=== PATIENT | male | born 1985 | race Two or more races ===

== ENCOUNTER 2017-09-20 09:11 | Emergency (ER) | payer MEDICAID ==
[~2017-09-20] VITALS: Ht 167.6 cm; Wt 74.4 kg
[2017-09-20 09:25] VITALS: BP 134/90
[2017-09-20] MEDS ORDERED: DIPHENHYDRAMINE25 M1 ORAL (09:42)
[2017-09-20] MEDS ORDERED: LORAZEPAM1 MG ORAL (09:43)
[2017-09-20] MEDS ORDERED: SERTRALINE HCL25 MG ORAL (09:43)
--- NOTE | 2017-09-20 09:52 | Emergency Room Report ---
History of Present Illness General Chief Complaint: General Complaint Source: Patient Present Illness HPI Patient reports that he was started on sertraline several months ago he reports that this was started by a psychiatrist in long term Since then he has felt that he has been having shaking and tremor feeling Patient still is taking the medication Denies any chest pain denies any abdominal pain denies any homicidal or suicidal thoughts Patient reports that this was a long term psychiatrist and therefore he has not been able to see any other physician Denies any focal weakness Allergies: Coded Allergies: HALOPERIDOL (Verified Allergy, Unknown, 09/20/17) Patient History Past Medical History: see triage record Pertinent Family History: none Reviewed Nursing Documentation: PMH: Agreed; PSxH: Agreed Nursing Documentation-PMH Hx Asthma: Yes Review of Systems All Other Systems: negative except mentioned in HPI Physical Exam Vital Signs Date Time Temp Pulse Resp B/P (MAP) Pulse Ox O2 Delivery O2 Flow Rate FiO2 09/20/17 09:15 98.4 100 18 132/90 95 Room Air 98.4 Sp02 EP Interpretation: reviewed, normal General Appearance: well appearing, no apparent distress - Patient has a mild non-provoked tremor while speaking to him. Initially entering the room the patient was sitting on the gurney without any discomfort. It appears exacerbated as he is discussing the presentation Head: normocephalic, atraumatic Eyes: bilateral eye PERRL, bilateral eye EOMI ENT: hearing grossly normal, normal pharynx, TMs + canals normal, uvula midline Neck: full range of motion, supple, no meningismus, no bony tend Respiratory: lungs clear, normal breath sounds, no rhonchi, no respiratory distress, no retraction, no accessory muscle use Cardiovascular #1: normal peripheral pulses, regular rate, rhythm, no edema, no gallop, no JVD, no murmur Gastrointestinal: normal bowel sounds, non tender, soft, no mass, no organomegaly, non-distended, no guarding, no hernia, no pulsatile mass, no rebound Genitourinary: no CVA tenderness Musculoskeletal: normal inspection Neurologic: oriented x3, responsive, 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
[2017-09-20] MEDS ORDERED: ALPRAZolam 0.5mg tab ORAL ONE (10:00)
[2017-09-20 10:18] LABS: BASOPHILS % (AUTO) 0.8 % (0.0-2.0); EOSINOPHILS % (AUTO) 1.2 % (0.0-3.0); HEMATOCRIT 49.3 % (42.0-52.0); HEMOGLOBIN 17.4 G/DL (14.2-18.0); LYMPHOCYTES % (AUTO) 24.4 % (20.0-45.0); MEAN CORPUSCULAR VOLUME 91 FL (80-99); MONOCYTES % (AUTO) 6.5 % (1.0-10.0); NEUTROPHILS % (AUTO) 67.1 % (45.0-75.0); PLATELET COUNT 191 K/UL (150-450); RED BLOOD COUNT 5.44 M/UL (4.70-6.10); WHITE BLOOD COUNT 11.4 K/UL (4.8-10.8)
[2017-09-20 10:32] LABS: ANION GAP 7 mmol/L (5-15); BLOOD UREA NITROGEN 17 mg/dL (7-18); CALCIUM 9.1 MG/DL (8.5-10.1); CARBON DIOXIDE 27 MMOL/L (21-32); CHLORIDE 104 MMOL/L (98-107); POTASSIUM 3.9 MMOL/L (3.5-5.1); SODIUM 138 MMOL/L (136-145)
[2017-09-20] MEDS ORDERED: ALPRAZOLAM0.25 MG ORAL (11:53)
[2017-09-20 12:20] VITALS: BP 124/87
== END 2017-09-20 12:25 | disposition home or self-care (01) ==
LOC: EDBD 09:11 → EMR 10:07
DX: R25.1 Tremor, unspecified (principal); Z88.8 Allergy status to other drugs, medicaments and biological substances
CPT/HCPCS: 36415; 80048; 80307; 85025; 99283